=== PATIENT | female | born 1960 | race Caucasian/White ===

== ENCOUNTER → 2017-05-04 | Outpatient (REF) ==
--- NOTE | 2017-05-04 10:48 | REP ---
RIGHT HAND SERIES: Four views. HISTORY: Degenerative disease. No comparison radiographs. FINDINGS: Four views of the right hand show diffuse osteopenia. There is moderate osteoarthritic narrowing and spur formation at the navicular multangular and at the 1st carpometacarpal articulations. Mild osteoarthritic changes are seen at the 1st MCP joint and there are osteoarthritic changes at the DIP joints of the each of the fingers, most pronounced at the 5th. No erosive changes are noted. There are small subcortical cysts in the distal first metacarpal and distal end of the proximal phalanx of the thumb. Small subcortical cysts are seen in the navicula and the distal end of the 3rd metacarpal. Impression: Diffuse osteoporosis and arthropathy changes. Signed by Cornelio Choi MD 05/04/2017 03:49 P
--- NOTE | 2017-05-04 10:49 | REP ---
LEFT KNEE SERIES: Five views. HISTORY: Degenerative disease. FINDINGS: Five views of the left knee show diffuse osteopenia. There is mild nonarticular spurring at the superior pole of the patella at the quadriceps tendon insertion. There is no evidence of joint effusion. Joint spaces are preserved. No erosive changes seen. IMPRESSION: Non articular spurring at the superior pole the patella. Otherwise negative. Signed by Cornelio Choi MD 05/04/2017 03:49 P
== END ==
LOC: M SMT 09:16
PROVIDERS: ATTEND Internal Medicine
DX: Z02.9 Encounter for administrative examinations, unspecified (principal)